=== PATIENT | male | born 1980 | race African-American/Black ===

== ENCOUNTER 2022-09-30 14:21 | Outpatient (CLI) | payer MEDICAID | END 2022-09-30 23:59 | disposition critical access hospital (66) | LOC: EMS 14:21 | DX: R07.1 Chest pain on breathing (principal) | CPT/HCPCS: A0425; A0429; A0999 ==

== ENCOUNTER 2022-09-30 15:14 | Emergency (ER) | payer MEDICARE, MEDICAID ==
[2022-09-30] MEDS ORDERED: IPRATROPIUM/ALBUTEROL 3 ML NEB INH STA (15:21)
--- NOTE | 2022-09-30 15:22 | ED Physician Documentation ---
History of Present Illness - Stated complaint Stated Complaint: SOA - History obtained from History obtained from: Patient, EMS - Additonal information Additional information: 42-year-old gentleman with history of asthma, has been out of his inhalers for a few weeks. 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 Since the PFO closure he has been feeling short of breath. It is especially exertional. There is some chest pressure with it. He denies fevers but has had a cough. PD PAST MEDICAL HISTORY - Present Medications Home Medications: Ambulatory Orders Medication Instructions Recorded Confirmed Albuterol Sulf [Ventolin Hfa 1 - 2 puffs INH Q4HR PRN #1 each 09/30/22 Inhaler] Potassium Chloride 20 meq PO BID #6 tab 09/30/22 - Allergies Allergies/Adverse Reactions: Allergies Allergy/AdvReac Type Severity Reaction Status Date / Time pseudoephedrine Allergy Unknown Verified 09/30/22 15:31 [From [facility]] shellfish derived Allergy Unknown Verified 09/30/22 15:31 PD ED PE NORMAL - Vitals Vital signs reviewed: Yes - General General: Alert and oriented X 3, No acute distress - HEENT HEENT: PERRL, EOMI - Neck Neck: Supple, no meningeal sign, No bony TTP - Cardiac Cardiac: RRR, No murmur - Respiratory Respiratory: No respiratory distress, Other (Slightly diminished breath sounds with mild expiratory wheezes but overall nonlabored) - Abdomen Abdomen: Non tender - Extremities Extremities: No edema, No calf tenderness / cord - Neuro Neuro: Alert and oriented X 3, Normal speech Results - Vitals Vitals: Vital Signs - 24 hr 09/30/22 09/30/22 15:25 15:42 Temperature 36.8 C Heart Rate 59 L 66 Respiratory 18 18 Rate Blood Pressure 146/103 H O2 Saturation 95 Oxygen O2 Source Room air - EKG (time done) 1551 EKG releavant findings:: EKG personally interpreted by author of this note. Relevant findings are: Rate: Rate (enter#) (50) Rhythm: NSR [place]: Normal Intervals: Prolonged [place] QRS: Normal Ischemia: Normal ST segments - Labs Labs: Laboratory Tests 09/30/22 09/30/22 09/30/22 16:22 16:22 16:22 WBC 7.7 RBC 5.27 Hgb 15.3 Hct 45.3 MCV 86.0 MCH 29.0 MCHC 33.8 RDW 13.3 Plt Count 212 MPV 8.8 Neut # (Auto) 4.3 Lymph # (Auto) 2.4 [place] # (Auto) 0.9 Eos # (Auto) 0.1 Baso # (Auto) 0.0 Absolute Nucleated RBC 0.00 Nucleated RBC % 0.0 Sodium 139 Potassium 2.5 L* Chloride 103 Carbon Dioxide 28 Anion Gap 8.0 BUN 13 Creatinine 0.8 Estimated GFR (MDRD) 128 Glucose 80 Calcium 9.2 Troponin I High Sens 15.2 - Rads (name of study) Single view chest x-ray is unremarkable Relevant Findings:: Final report received, EMP independent interpretation of test PD Medical Decision Making - ED course ED course: 42-year-old gentleman presents with shortness of breath in his abdomen and his inhaler. He was feeling better after a DuoNeb here. He was wheezing. Chest x- ray is clear. No evidence of active heart disease. Labs were notable for pretty low potassium level and he received a couple doses of supplementation here. Since he is minimally symptomatic for that we will continue oral supplementation as an outpatient. Departure - Departure Disposition: 01 Home, Self Care Clinical Impression: Asthma, Hypokalemia Condition: Good Record reviewed to determine appropriate education?: Yes Instructions: Asthma Dc, Hypokalemia Dc Prescriptions: Albuterol Sulf [Ventolin Hfa Inhaler] 1 - 2 puffs INH Q4HR PRN #1 each PRN Reason: Shortness Of Air/Wheezing Potassium Chloride 20 meq PO BID #6 tab Comments: No serious cause of the shortness of breath was identified other than your asthma. Labs were notable for pretty low potassium level and I am prescribing a potassium supplement to be taken for the next several days. This is likely from poor intake and vomiting related to your fentanyl withdrawal. Recommend proceeding back to detox. Return if worse.
--- NOTE | 2022-09-30 15:46 | XRAY Report ---
PROCEDURE: Chest 1 View X-Ray INDICATIONS: dyspnea TECHNIQUE: One view of the chest was acquired. COMPARISON: None. FINDINGS: Surgical changes and devices: None. Lungs and pleura: No pleural effusions or pneumothorax. Lungs are clear. Mediastinum: Mediastinal contours appear normal. Heart size is normal. Bones and chest wall: No suspicious bony lesions. Overlying soft tissues appear unremarkable. IMPRESSION: No acute cardiopulmonary process. Reviewed by: Cristian Blanca MD on 09/30/2022 3:44 PM PDT Approved by: Cristian Blanca MD on 09/30/2022 3:44 PM PDT Station ID: [id number]
[2022-09-30 16:27] LABS: BASOPHILS % (AUTO) 0.4 %; EOSINOPHILS # (AUTO) 0.1 10^3/uL (0.0-0.7); EOSINOPHILS % (AUTO) 1.8 %; HCT - HEMATOCRIT 45.3 % (42.0-52.0); HGB - HEMOGLOBIN 15.3 g/dL (14.0-18.0); LYMPHOCYTES # (AUTO) 2.4 10^3/uL (1.5-3.5); LYMPHOCYTES % (AUTO) 31.1 %; MEAN CORPUSCULAR HGB CONC 33.8 g/dL (32.0-36.0); MEAN PLATELET VOLUME 8.8 fL (7.4-11.4); MONOCYTES # (AUTO) 0.9 10^3/uL (0.0-1.0); MONOCYTES % (AUTO) 11.3 %; NEUTROPHILS # (AUTO) 4.3 10^3/uL (1.5-6.6); NEUTROPHILS % (AUTO) 55.3 %; PLT - PLATELET COUNT 212 10^3/uL (130-450); RED BLOOD COUNT 5.27 10^6/uL (4.70-6.10); RED CELL DISTRIBUTION WIDTH 13.3 % (12.0-15.0); WHITE BLOOD COUNT 7.7 x10^3/uL (4.8-10.8)
[2022-09-30] MEDS ORDERED: LORazepam 1 MG TABLET PO STA (16:28)
[2022-09-30] MEDS ORDERED: ONDANSETRON ODT 4 MG TABLET TL STA (16:28)
[2022-09-30 16:45] LABS: CALCIUM 9.2 mg/dL (8.5-10.3); CREATININE 0.8 mg/dL (0.6-1.3); POTASSIUM 2.5 mmol/L (3.5-4.5)
[2022-09-30] MEDS ORDERED: POTASSIUM CHLORIDE 20 MEQ TABLET PO STA (16:45)
[2022-09-30] MEDS ORDERED: POTASSIUM CHLORIDE 20 MEQ TABLET PO SCH (17:00)
[2022-09-30 17:32] VITALS: BP 146/72
== END 2022-09-30 17:30 | disposition home or self-care (01) ==
LOC: ED 15:14
DX: J45.909 Unspecified asthma, uncomplicated (principal); E87.6 Hypokalemia
CPT/HCPCS: 36415; 71045; 80048; 84484; 85025; 93005; 94640; 99284; A9270; J8499; Q0162; 85379